=== PATIENT | female | born 1980 | race Two or more races ===

== ENCOUNTER 2024-10-29 08:00 | Outpatient (AMB) | payer MEDICAID, SELFPAY ==
--- NOTE | 2024-10-29 08:09 | PD.ORTHCLVIS ---
Vital signs 10/29/24 08:10 Height 1.52 m Height Method Stated Weight 65.856 kg Weight Measurement Method Standing Scale BMI 28.3 BP 110/75 Blood Pressure Source Automatic Cuff Blood Pressure Location Left Upper Arm Position Sitting Respiration 18 Pulse 56 L Pulse Source Monitor Temp 97.8 F Temp Source Temporal Artery Scan Pulse Oximetry (%) 98 Oxygen Delivery Method Room Air Med/Allergies Allergies & Medications Allergies No Known Allergies Allergy (Uncoded 10/29/24 08:10) Medication Reconciliation No Known Home Medications 11/15/17 [History Confirmed 10/29/24] Exam Exam Patient is in no acute distress and is cooperative with the examination today. Breathing is nonlabored. In no respiratory distress. Patient has no paraspinal tenderness. Spinal deformity cannot be appreciated. The gait of the patient is nonantalgic Bilateral extremities were evaluated and demonstrates sensation intact to light touch. Palpable pedal pulses are present. No significant edema is present. Bilateral knees were examined and the patient has full strength and range of motion.. The right hip was examined. Patient was able to flex to 90 degrees, adduct to 30 degrees, abduct to 40 degrees, internally rotate to 20 degrees, and externally rotate to 20 degrees. Patient has a negative logroll. Stinchfield is negative. The patient is nontender diffusely to touch. The left hip was examined. Patient was able to flex to 90 degrees, adduct to 30 degrees, abduct to 40 degrees, internally rotate to 20 degrees, and externally rotate to 20 degrees. Patient has a negative logroll. The stinchfield is negative. Patient is tender to palpation of the greater trochanter X-rays of the left hip were reviewed. This is from the [facility]. This demonstrates no joint space narrowing at all. Assessment and Plan Problem List (1) Trochanteric bursitis, left hip: Status: Acute Plan: Patient is a pleasant 44-year-old female with trochanteric bursitis of the left hip. She has had multiple injections in the past but none recently. We discussed different treatment options including anti-inflammatories, injections, and physical therapy. She would like an injection. She would need to get authorization for this. Office Procedures GNS Level of Care Nursing/Assessment Patient Status: Initial/New Patient Nursing Assessment/Reassesment: Medication Reconciliation, Update PMH in EMR and Vital Signs Coordination of Care: Complex Care and Chronic Disease 1-5, Education Complex Pt/Fam, Consent,records obtained, informed consent, 1 Ins Authorization, Lab and Imaging orders, Results/Orders obtained and Staff clarify orders New Patient Charge New Patient Point Assignment: [id number] New Patient Point Charge: PHOTOCOPIER TECHNICIAN Level 4 ([id number]) MA Intake Visit Data Collection New Patient or Established: New Patient (never been to [facility]) Reason for Visit:: LEFT HIP PAIN Seen by Clinical Staff ONLY (RN/MA): No PCP or OBGYN visit in last 3 months: Yes Hx Now: No Do You Feel Safe at Home: Yes Authorities Contacted: N/A Questionairres Past Medical History Past Medical History Have you ever been diagnosed with any of the following: Cardiology Problems Congestive Heart Failure: No Respiratory Problems Chronic Obstructive Pulmonary Disease (COPD): No Smoking: No Smoking Exposure: No Genital/Urinary Problems Renal Disease: No Reproductive Problems Previous Pregnancies: Yes (A1) Endocrine Problems Diabetes Mellitus Type 1: No Diabetes Mellitus Type 2: No Blood Problems Anemia: Yes Other Problems Chicken Pox: Yes Subjective Visit Visit for: new patient and hip (LEFT) Immunization / Flu Flu Vaccine in the Last 12 Months: Yes Flu Vaccine Exclusion Criteria: Already Received History of Present Illness Chief complaint: left hip pain Date of injury / onset of symptoms: 8 YEARS Patient is a pleasant 44-year-old female with trochanteric bursitis of the left hip. She has previously seen another orthopedic surgeon. The pain is on the lateral aspect of her hip and she has pain sleeping at night. She reports that direct pressure hurts quite a bit. She cannot take anti-inflammatories due to gastritis. She has had over 5 injections in the past but none have been recent. She is also tried physical therapy when this initially occurred Personal History Occupation: [employer] Pain Pain level (0-10): 4 Pain duration: WITH MOVEMENT Pain location: groin, inside (medial) and outside (lateral) Pain quality: sharp, dull and aching Pain timing: night, increases with activity and stairs Associated signs & symptoms: numbness and weakness Ambulatory data Ambulatory device: none Treatments Number of previous injections: 6 Improvement with previous injections: Yes Number of Physical Therapy sessions: 12 Improvement with PT: No Improvement with NSAIDS: no Review of Systems Review of Systems: All systems negative unless otherwise noted in HPI.
[2024-10-29 08:10] VITALS: BP 110/75; PULSE 56; RESP 18; TEMP 36.6; O2SAT 98; BMI 28.3
== END 2024-10-29 08:19 | disposition home or self-care (01) ==
LOC: HODSRG 08:00
PROVIDERS: PCP Family Medicine; Referring Provider Family Medicine; Supervising Provider Orthopaedic Surgery Adult Reconstructive Orthopaedic Surgery; Visit Provider Orthopaedic Surgery Adult Reconstructive Orthopaedic Surgery
DX: M70.62 Trochanteric bursitis, left hip (principal)
CPT/HCPCS: 99204; G0463

== ENCOUNTER 2024-11-05 07:59 | Outpatient (AMB) | payer MEDICAID, SELFPAY ==
--- NOTE | 2024-11-05 08:10 | ORTHONT_ITS ---
Vital signs 11/05/24 08:13 Height 1.52 m Height Method Stated Weight 64.665 kg Weight Measurement Method Standing Scale BMI 28.0 BP 112/75 Blood Pressure Source Automatic Cuff Blood Pressure Location Right Upper Arm Position Sitting Respiration 18 Pulse 59 L Pulse Source Monitor Temp 97.3 F Temp Source Temporal Artery Scan Pulse Oximetry (%) 98 Oxygen Delivery Method Room Air Med/Allergies Allergies & Medications Allergies No Known Allergies Allergy (Uncoded 11/05/24 08:13) Medication Reconciliation No Known Home Medications 11/15/17 [History Confirmed 11/05/24] Exam Exam Patient is in no acute distress and is cooperative with the examination today. Breathing is nonlabored. In no respiratory distress. Patient has no paraspinal tenderness. Spinal deformity cannot be appreciated. The gait of the patient is nonantalgic Bilateral extremities were evaluated and demonstrates sensation intact to light touch. Palpable pedal pulses are present. No significant edema is present. Bilateral knees were examined and the patient has full strength and range of motion.. The right hip was examined. Patient was able to flex to 90 degrees, adduct to 30 degrees, abduct to 40 degrees, internally rotate to 20 degrees, and externally rotate to 20 degrees. Patient has a negative logroll. Stinchfield is negative. The patient is nontender diffusely to touch. The left hip was examined. Patient was able to flex to 90 degrees, adduct to 30 degrees, abduct to 40 degrees, internally rotate to 20 degrees, and externally rotate to 20 degrees. Patient has a negative logroll. The stinchfield is negative. Patient is tender to palpation of the greater trochanter X-rays of the left hip were reviewed. This is from the [facility] imaging. This demonstrates no joint space narrowing at all. Assessment and Plan Problem List (1) Trochanteric bursitis, left hip: Status: Acute Plan: Patient is a pleasant 44-year-old female with trochanteric bursitis of the left hip. She has had multiple injections in the past but none recently. We discussed different treatment options including anti-inflammatories, injections, and physical therapy. Recommend hip bursa cortisone injection as patient would like to proceed with conservative treatment at this time. The risks and benefits of the procedure were reviewed with the patient and patient gave verbal consent to continue with the procedure. Procedure: performed by Dr. Mas Using sterile technique the left hip bursa was thoroughly prepped with alcohol prep, and approximately 1 cc of Kenalog 40 mg/mL and 4 cc of 1% Lidocaine was injected without resistance. The patient tolerated the procedure well. Recommend knee cortisone injection as patient would like to proceed with conservative treatment at this time. The risks and benefits of the procedure were reviewed with the patient and patient gave verbal consent to continue with the procedure. Procedure: performed by Dr. Mas Using sterile technique the left knee was thoroughly prepped with alcohol, and approximately 1 cc of Kenalog 40 mg/mL and 4 cc of 1% lidocaine was injected without resistance into the medial tibial femoral joint space. The patient tolerated the procedure. Office Procedures GNS Level of Care Nursing/Assessment Patient Status: Established Patient Nursing Assessment/Reassesment: Medication Reconciliation, Update PMH in EMR and Vital Signs Coordination of Care: Complex Care and Chronic Disease 1-5, Education Complex Pt/Fam, Consent,records obtained, informed consent, Results/Orders obtained and Staff clarify orders Established Patient Charge Established Patient Point Assignment: 95 Established Patient Point Charge: EP Level 3 (80-115) Surgical Proc/IM SQ injection Major Surgical Procedure: Yes (LEFT HIP/KNEE INJECTION) Medication Given Medication Given Medication Given: Yes Documented Dose Given: 4 Route: Infiitration Medication Given Medication Given Medication Given: Yes Documented Dose Given: 4 Route: Infiitration Medication Given Medication Given Medication Given: Yes Documented Dose Given: 1 Route: Infiitration Medication Given Medication Given Medication Given: Yes Documented Dose Given: 1 Route: Infiitration Office Meds Xylocaine 10 mg/mL (1 %) injection solution Performing Provider: Oz Mas MD Performing Location: [facility] Administered by: Oz Mas MD on 11/05/24 10:09 Dose Route Admin Location Dispensed Lot Number Expiration Date [facility] [employer]oe Maker 40 mL Infiltration 40 mL [id number] 01/14/28 07226-717-53 [employer] Xylocaine 10 mg/mL (1 %) injection solution Performing Provider: Oz Mas MD Performing Location: [facility] Administered by: Oz Mas MD on 11/05/24 10:09 Dose Route Admin Location Dispensed Lot Number Expiration Date [facility] [employer]oe Maker 20 mL Infiltration 20 mL [id number] 01/14/28 17113-940-03 [employer] triamcinolone acetonide 40 mg/mL suspension for injection Performing Provider: Oz Mas MD Performing Location: [facility] Administered by: Oz Mas MD on 11/05/24 10:09 Dose Route Admin Location Dispensed Lot Number Expiration Date [facility] [employer] Maker 40 mg intra-articular KNEE 1 mL [id number] 05/15/26 3168-2547-05 [employer] triamcinolone acetonide 40 mg/mL suspension for injection Performing Provider: Oz Mas MD Performing Location: [facility] Administered by: Oz Mas MD on 11/05/24 10:09 Dose Route Admin Location Dispensed Lot Number Expiration Date [facility] Orth[employer] Shoe Maker 80 mg intra-articular 2 mL [id number] 03/15/268041-4465-27 [employer] [place] [employer] MA Intake Visit Data Collection New Patient or Established: Established Patient (seen at [facility] within 3 years) Reason for Visit:: hip injection Seen by Clinical Staff ONLY (RN/MA): No Verbal consent obtained for Telemed visit?: No Drop Forger Required: No PCP or OBGYN visit in last 3 months: Yes Hx Now: No Do You Feel Safe at Home: Yes Authorities Contacted: N/A Questionairres Past Medical History Past Medical History Have you ever been diagnosed with any of the following: Cardiology Problems Congestive Heart Failure: No Respiratory Problems Chronic Obstructive Pulmonary Disease (COPD): No Smoking: No Smoking Exposure: No Genital/Urinary Problems Renal Disease: No Reproductive Problems Previous Pregnancies: Yes (A1) Endocrine Problems Diabetes Mellitus Type 1: No Diabetes Mellitus Type 2: No Blood Problems Anemia: Yes Other Problems Chicken Pox: Yes Subjective Visit Visit for: follow up visit, hip and injections Immunization / Flu Flu Vaccine in the Last 12 Months: No Flu Vaccine Exclusion Criteria: No Exclusion Criteria History of Present Illness Chief complaint: Hip injection Date of injury / onset of symptoms: 8 YEARS Patient is a pleasant 44-year-old female with trochanteric bursitis of the left hip. She has previously seen another orthopedic surgeon. The pain is on the lateral aspect of her hip and she has pain sleeping at night. She reports that direct pressure hurts quite a bit. She cannot take anti-inflammatories due to gastritis. She has had over 5 injections in the past but none have been recent. She is also tried physical therapy when this initially occurred Personal History Occupation: [employer] Pain level (0-10): 8 Pain duration: all day Pain location: groin, inside (medial), outside (lateral), anterior and posterior Pain quality: sharp, dull and aching Pain timing: increases with activity Associated signs & symptoms: numbness and weakness Ambulatory data Ambulatory device: none Treatments Number of previous injections: 6 Improvement with previous injections: No Number of Physical Therapy sessions: 12 Improvement with PT: No Improvement with NSAIDS: no Review of Systems Review of Systems: All systems negative unless otherwise noted in HPI.
[2024-11-05 08:13] VITALS: BP 112/75; PULSE 59; RESP 18; TEMP 36.3; O2SAT 98; BMI 28.0
== END 2024-11-05 08:35 | disposition home or self-care (01) ==
PROVIDERS: PCP Family Medicine; Referring Provider Family Medicine; Supervising Provider Orthopaedic Surgery Adult Reconstructive Orthopaedic Surgery; Visit Provider Orthopaedic Surgery Adult Reconstructive Orthopaedic Surgery
DX: M70.62 Trochanteric bursitis, left hip (principal)
CPT/HCPCS: 20610; 99213; J3301; J3490; G0463

== ENCOUNTER 2025-02-13 09:04 | Outpatient (AMB) | payer MEDICAID, SELFPAY ==
[2025-02-13 09:40] VITALS: BP 115/77; PULSE 80; RESP 18; TEMP 36.6; O2SAT 98; BMI 26.8
--- NOTE | 2025-02-13 09:40 | PD.ORTHCLVIS ---
Vital signs 02/13/25 09:40 Height 1.52 m Height Method Measured Weight 61.944 kg Weight Measurement Method Standing Scale BMI 26.8 BP 115/77 Blood Pressure Source Automatic Cuff Blood Pressure Location Left Upper Arm Position Sitting Respiration 18 Pulse 80 Pulse Source Monitor Temp 97.8 F Temp Source Temporal Artery Scan Pulse Oximetry (%) 98 Oxygen Delivery Method Room Air Med/Allergies Allergies & Medications Allergies No Known Allergies Allergy (Uncoded 02/13/25 09:41) Medication Reconciliation naproxen 500 mg tablet 500 mg PO bid #60 tabs 02/13/25 [Rx] Exam Exam Patient is in no acute distress and is cooperative with the examination today. Breathing is nonlabored. In no respiratory distress. Patient has no paraspinal tenderness. Spinal deformity cannot be appreciated. The gait of the patient is nonantalgic Bilateral extremities were evaluated and demonstrates sensation intact to light touch. Palpable pedal pulses are present. No significant edema is present. Bilateral knees were examined and the patient has full strength and range of motion.. The right hip was examined. Patient was able to flex to 90 degrees, adduct to 30 degrees, abduct to 40 degrees, internally rotate to 20 degrees, and externally rotate to 20 degrees. Patient has a negative logroll. Stinchfield is negative. The patient is nontender diffusely to touch. The left hip was examined. Patient was able to flex to 90 degrees, adduct to 30 degrees, abduct to 40 degrees, internally rotate to 20 degrees, and externally rotate to 20 degrees. Patient has a negative logroll. The stinchfield is negative. Patient is tender to palpation of the greater trochanter X-rays of the left hip were reviewed. This is from the [facility] imaging. This demonstrates no joint space narrowing at all. Assessment and Plan Problem List (1) Trochanteric bursitis, left hip: Status: Acute Plan: Patient is a pleasant 44-year-old female with trochanteric bursitis of the left hip. She has had multiple injections in the past but none recently. We discussed different treatment options including anti-inflammatories, injections, and physical therapy. Recently, she has demonstrated numbness and tingling down her feet. We will thus order a spine MRI as she reports significant weakness and numbness and tingling in her femur and her toes. We have sent her prescription for anti-inflammatories and she would like a left hip bursa injection today Recommend hip bursa cortisone injection as patient would like to proceed with conservative treatment at this time. The risks and benefits of the procedure were reviewed with the patient and patient gave verbal consent to continue with the procedure. Procedure: performed by Dr. Mas Using sterile technique the left hip bursa was thoroughly prepped with alcohol prep, and approximately 1 cc of Depo-Medrol 80 and 4 cc of 0.2% lidocaine was injected without resistance. The patient tolerated the procedure well. Office Procedures GNS Level of Care Nursing/Assessment Patient Status: Established Patient Nursing Assessment/Reassesment: Medication Reconciliation, Update PMH in EMR and Vital Signs Coordination of Care: Complex Care and Chronic Disease 1-5, Education Complex Pt/Fam, Consent,records obtained, informed consent, Results/Orders obtained and Staff clarify orders Established Patient Charge Established Patient Point Assignment: 95 Established Patient Point Charge: EP Level 3 (80-115) Surgical Proc/IM SQ injection Major Surgical Procedure: Yes (LEFT HIP INJECTION ) Medication Given Medication Given Medication Given: Yes Documented Dose Given: 1 Route: Infiitration Medication Given Medication Given Medication Given: Yes Documented Dose Given: 4 Route: Infiitration Office Meds methylprednisolone acetate 80 mg/mL suspension for injection Performing Provider: Oz Mas MD Performing Location: [facility] Administered by: Oz Mas MD on 02/13/25 09:49 Dose Route Admin Location Dispensed Lot Number Expiration Date [facility] Utility Bill Collector 80 mg intra-articular LEFT HIP 1 mL [id number] 12/14/26 [address]-8 [employer] ropivacaine (PF) 2 mg/mL (0.2 %) injection solution Performing Provider: Oz Mas MD Performing Location: [facility] Administered by: Oz Mas MD on 02/13/25 09:49 Dose Route Admin Location Dispensed Lot Number Expiration Date [facility] Utility Bill Collector 20 mL Infiltration 20 mL [id number] 05/16/26 01897-595-61 [facility] Intake Visit Data Collection New Patient or Established: Established Patient (seen at [facility] within 3 years) Reason for Visit:: 3 MONTH F/U LEFT HIP/KNEE PAIN Seen by Clinical Staff ONLY (RN/MA): No Social Media Manager Required: No PCP or OBGYN visit in last 3 months: Yes Hx Now: No Do You Feel Safe at Home: Yes Authorities Contacted: N/A Questionairres Past Medical History Past Medical History Have you ever been diagnosed with any of the following: Cardiology Problems Congestive Heart Failure: No Respiratory Problems Chronic Obstructive Pulmonary Disease (COPD): No Smoking: No Smoking Exposure: No Genital/Urinary Problems Renal Disease: No Reproductive Problems Previous Pregnancies: Yes (A1) Endocrine Problems Diabetes Mellitus Type 1: No Diabetes Mellitus Type 2: No Blood Problems Anemia: Yes Other Problems Chicken Pox: Yes Subjective Visit Visit for: follow up visit, hip and knee Immunization / Flu Flu Vaccine in the Last 12 Months: No Flu Vaccine Exclusion Criteria: No Exclusion Criteria History of Present Illness Chief complaint: 3 MONTH F/U LEFT HIP/ KNEE PAIN Date of injury / onset of symptoms: 8 YEARS Patient is a pleasant 44-year-old female with trochanteric bursitis of the left hip. She has previously seen another orthopedic surgeon. The pain is on the lateral aspect of her hip and she has pain sleeping at night. She reports that direct pressure hurts quite a bit. She cannot take anti-inflammatories due to gastritis. She reports that this occurred 12 years ago and like to try anti-inflammatories. she has had over 5 injections in the past but none have been recent. She has also tried physical therapy when this initially occurred Personal History Occupation: [employer] Red flag PMH: none BMI Counceling provided: Yes Pain Pain level (0-10): 8 Pain duration: all day Pain location: anterior Pain quality: dull and aching Pain timing: night and increases with activity Associated signs & symptoms: none Ambulatory data Ambulatory device: none Treatments Number of previous injections: 1 Improvement with previous injections: Yes Number of Physical Therapy sessions: 12 Improvement with PT: No Improvement with NSAIDS: no Review of Systems Review of Systems: All systems negative unless otherwise noted in HPI.
== END 2025-02-13 09:33 | disposition home or self-care (01) ==
LOC: HODSRG 09:04
PROVIDERS: PCP Family Medicine; Referring Provider Family Medicine; Supervising Provider Orthopaedic Surgery Adult Reconstructive Orthopaedic Surgery; Visit Provider Orthopaedic Surgery Adult Reconstructive Orthopaedic Surgery
DX: M70.62 Trochanteric bursitis, left hip (principal); R20.0 Anesthesia of skin; R20.2 Paresthesia of skin; K29.70 Gastritis, unspecified, without bleeding
CPT/HCPCS: 20610; 99213; J1010; J2795; G0463

== ENCOUNTER → 2025-03-29 | Outpatient (CLI) | payer MEDICAID, SELFPAY ==
--- NOTE | 2025-03-29 10:00 | XR_ITS ---
Examination: MRI lumbar spine without contrast Date and time of exam: March 29, 2025, 11:29 PM Indications: Lower back pain radiating to the left hip left leg and left knee numbness in the left foot beginning 8 years ago, worse the last year Technique: Multiple MRI axial and sagittal sections lumbar spine. Sagittal T2-weighted images, TR 3500, TE 118 T1 weighted transverse sections, TR 688 T8.5, T2-weighted sagittal sections T1 weighted sagittal sections TR 621, TE 30 T2 axial sections, TR 4, 190, TE 84. Findings: Adequate alignment lumbar vertebral bodies. No lumbar fracture. Mild disc narrowing posteriorly L5-S1. No spondylolisthesis. L5-S1 3 mm right paracentral disc bulge, no ganglionic compression L4-L5 3 mm foraminal disc bulges bilaterally but no ganglionic compression L3-L4 no disc protrusion L2-L3 no disc protrusion L1-L2 no disc protrusion Impression: L5-S1 3 mm right paracentral disc bulge
== END | disposition home or self-care (01) ==
LOC: SMRI 09:49
PROVIDERS: Referring Provider Orthopaedic Surgery Adult Reconstructive Orthopaedic Surgery; Visit Provider Orthopaedic Surgery Adult Reconstructive Orthopaedic Surgery
DX: M51.370 Other intervertebral disc degeneration, lumbosacral region with discogenic back pain only (principal)
CPT/HCPCS: 72148